=== PATIENT | female | born 1945 | race Caucasian/White ===

== ENCOUNTER 2023-01-13 10:37 | Inpatient (IN) | payer BC, OTHER ==
[~2023-01-13] VITALS: Ht 167.6 cm; Wt 66.7 kg
[2023-01-13 11:03] VITALS: BP 143/72
--- NOTE | 2023-01-13 11:03 | NUR ---
AMBULATED TO BED IN NO DISTRESS.
--- NOTE | 2023-01-13 11:09 | NUR ---
REPORT RECEIVED ASSUMED CARE
--- NOTE | 2023-01-13 11:19 | NUR ---
PER PT REPORT PT HHAD 2 EPISODE OF BLACK STOOL 2 WEEKS AGOO TODAY BRIGHT RED, DENIES CP, SOB, OR DIZZINESS, PT TAKES DAILY ASA
[2023-01-13 11:41] LABS: BASOPHILS % (AUTO) 0.5 % (0.0-2.0); EOSINOPHILS # (AUTO) 0.1 K/uL (0-0.4); EOSINOPHILS % (AUTO) 1.6 % (0.0-4.0); HEMATOCRIT 37.1 % (36-48); HEMOGLOBIN 12.7 g/dL (12.0-16.0); LYMPHOCYTES # (AUTO) 1.5 K/uL (2.5-16.5); LYMPHOCYTES % (AUTO) 27.3 % (20.5-51.1); MEAN CORPUSCULAR HEMOGLOBIN 33 pg (27-31); MEAN CORPUSCULAR HGB CONC 34 g/dL (33-37); MEAN CORPUSCULAR VOLUME 95.8 fL (80-94); MONOCYTES # (AUTO) 0.6 K/uL (0.8-1.0); MONOCYTES % (AUTO) 10.6 % (1.7-9.3); NEUTROPHILS # (AUTO) 3.4 K/uL (1.8-7.7); PLATELET COUNT (AUTO) 285 K/uL (140-450); RED BLOOD CELL COUNT(AUTO) 3.87 MIL/uL (4.20-5.40); RED CELL DISTRIBUTION WIDTH 13.8 % (11.6-13.7); WHITE BLOOD COUNT (AUTO) 5.7 K/uL (4.8-10.8)
--- NOTE | 2023-01-13 11:48 | NUR ---
PT C/O BLOODY STOOL TODAY, 2 PREVIOUS DARK STOOL EPISODES IN THE PAST 2WKS. NAD HX: HTN, DM, PACEMAKER
[2023-01-13 11:55] LABS: APPEARANCE,URINE CLEAR (CLEAR); BILIRUBIN,URINE NEGATIVE (NEGATIVE); BLOOD, URINE NEGATIVE (NEGATIVE); COLOR,URINE YELLOW (YELLOW); LEUKOCYTE ESTERASE ,URINE 1+ (NEGATIVE); NITRITE, URINE NEGATIVE (NEGATIVE); UGLUCOSE NEGATIVE (NEGATIVE)
[2023-01-13 12:02] LABS: ALBUMIN 4.1 g/dL (3.4-5.0); AMYLASE 74 U/L (25-115); ANION GAP 14.8 (8-16); ASPARTATE AMINOTRANSFERASE 17 U/L (15-37); CARBON DIOXIDE 24.2 mmol/L (21-32); CHLORIDE 106 mmol/L (98-107); CREATININE 0.8 mg/dL (0.6-1.3); GLUCOSE 146 mg/dL (74-106); LIPASE 161 U/L (73-393); SODIUM SERUM 141 mmol/L (136-145); TOTAL BILIRUBIN 0.3 mg/dL (0.0-1.0); UREA NITROGEN, BLOOD 13 mg/dL (7-18)
[2023-01-13] MEDS ORDERED: NACL 0.9% 2,000 ML IV ONE (12:55)
[2023-01-13] MEDS ORDERED: PIPERACILLIN/TAZOBACTAM 3.375 GM in DEXTROSE 5% 50 ML IV ONE (13:05)
[2023-01-13] MEDS ORDERED: PIPERACILLIN/TAZOBACTAM 3.375 GM VIAL IV ONE (13:33)
[2023-01-13] MEDS ORDERED: HYDROcodone/APAP 7.5/325 MG 1 TAB PO PRN (15:25)
[2023-01-13] MEDS ORDERED: NACL 0.9% 1,000 ML IV SCH (15:25)
[2023-01-13] MEDS ORDERED: ONDANSETRON 4 MG/2 ML VIAL IVP PRN (15:25)
[2023-01-13] MEDS ORDERED: POTASSIUM CHLORIDE 10 MEQ TABER PO PRN (15:25)
[2023-01-13] MEDS ORDERED: ACETAMINOPHEN 325 MG TAB PO PRN (15:25)
[2023-01-13 17:00] LABS: AMYLASE 73 U/L (25-115); CHOL/HDL RATIO 3.1 (1-4.5); HDL CHOLESTEROL 72 mg/dL (40-60); LDL (CALC) 132 mg/dL (60-100); LIPASE 166 U/L (73-393); MAGNESIUM 1.4 mg/dL (1.8-2.4); PHOSPHORUS 3.3 mg/dL (2.5-4.9); THYROID STIMULATING HORMONE 1.59 uIU/mL (0.34-3.74); TRIGLYCERIDES 92 mg/dL (30-150)
[2023-01-13 18:59] LABS: PROTHROMBIN TIME 10.3 secs (10.8-13.4)
--- NOTE | 2023-01-13 19:35 | NUR ---
Patient resting in bed, A/Ox4, chest rise and fall symmetrical, no c/o pain of s/s of distress, on monitor.
[2023-01-13] MEDS: MAG SULF 2000 MG/WATER PREMIX 50 ML IV PRN (20:39)
[2023-01-13] MEDS: DOCUSATE SODIUM 100 MG GELCAP PO SCH (21:00)
--- NOTE | 2023-01-13 21:00 | NUR ---
Patient resting in bed, A/Ox4, chest rise and fall symmetrical, no c/o pain of s/s of distress, on monitor.
--- NOTE | 2023-01-13 21:12 | NUR ---
Patient will be admitted to care of Dr. Sanchez. Admited to [facility]. Will go to room 110B. Belongings list completed. Report to [facility] Nurse Vicky RN. [facility] Nurse Vicky RN verbalized understanding of report, no further questions.
--- NOTE | 2023-01-13 21:25 | NUR ---
PT WAS ADMITTED TO [facility] DEPARTMENT FROM ER WITH DIAGNOSIS OF SEPSIS AND COLITIS. PT IS AOX4, AMBULATORY, NEPALI SPEAKING, ABLE TO VERBALIZE NEEDS AND ABLE TO FOLLOW COMMANDS. PT IS ON ROOM AIR AND ON REGULAR DIET. PT HAS IV ON RIGHT FOREARM GAUGE 20 RUNNING WITH NS AT 50ML/HR. PT SKIN IS INTACT. PT DENIES PAIN AND NO S/S OF RESPIRATORY DISTRESS NOTED. ALL SAFETY MEASURES IMPLEMENTED. BED IN LOW POSITION AND CALL LIGHT WITHIN REACH.
--- NOTE | 2023-01-13 22:30 | NUR ---
SCHEDULED AND PRESCRIBED MEDICATION WAS GIVEN TO PT PER MD ORDER. ALL SAFETY MEASURES IMPLEMENTED. BED IN LOW POSITION AND CALL LIGHT WITHIN REACH.
[2023-01-14] VITALS: BP 109/55
--- NOTE | 2023-01-14 00:24 | NUR ---
NOTIFIED DR. RESENDIZ REGARDING PT ACCUCHECK. WILL WAIT FOR DOCTOR'S ORDER.
[2023-01-14] MEDS ORDERED: INSULIN LISPRO SLIDING SCALE 100 UNITS/ML VIAL SUBQ PRN (01:05)
--- NOTE | 2023-01-14 02:00 | NUR ---
PT IS ON SLEEP. CHEST RISE AND FALL SYMMETRICALLY NOTED. RESPIRATION IS EVEN AND UNLABORED. ALL SAFETY MEASURES IMPLEMENTED. BED IN LOW POSITION AND CALL LIGHT WITHIN REACH.
--- NOTE | 2023-01-14 04:15 | NUR ---
ASSISTED PT TO BATHROOM AND COLLECTED URINE SPECIMEN. NO COMPLAIN OF PAIN. NO S/S OF RESPIRATORY DISTRESS NOTED. ALL SAFETY MEASURES IMPLEMENTED. BED IN LOW POSITION AND CALL LIGHT WITHIN REACH.
[2023-01-14] MEDS: DEXT 5% / NACL 0.9% 500 ML IV SCH ×3 (06:29→19:04)
[2023-01-14] MEDS: BLOOD GLUCOSE MONITORING 1 DEV DEV FS SCH ×4 (06:31→20:59)
[2023-01-14 07:10] LABS: BASOPHILS % (AUTO) 0.3 % (0.0-2.0); EOSINOPHILS # (AUTO) 0.1 K/uL (0-0.4); EOSINOPHILS % (AUTO) 3.1 % (0.0-4.0); HEMATOCRIT 35.1 % (36-48); HEMOGLOBIN 11.9 g/dL (12.0-16.0); LYMPHOCYTES # (AUTO) 1.5 K/uL (2.5-16.5); LYMPHOCYTES % (AUTO) 38.5 % (20.5-51.1); MEAN CORPUSCULAR HEMOGLOBIN 33 pg (27-31); MEAN CORPUSCULAR HGB CONC 34 g/dL (33-37); MEAN CORPUSCULAR VOLUME 96.2 fL (80-94); MONOCYTES # (AUTO) 0.6 K/uL (0.8-1.0); MONOCYTES % (AUTO) 15.7 % (1.7-9.3); NEUTROPHILS # (AUTO) 1.7 K/uL (1.8-7.7); NEUTROPHILS % (AUTO) 42.4 % (42.2-75.2); PLATELET COUNT (AUTO) 268 K/uL (140-450); RED BLOOD CELL COUNT(AUTO) 3.65 MIL/uL (4.20-5.40); RED CELL DISTRIBUTION WIDTH 13.6 % (11.6-13.7); WHITE BLOOD COUNT (AUTO) 3.9 K/uL (4.8-10.8)
[2023-01-14 07:11] LABS: ANION GAP 9.7 (8-16); CARBON DIOXIDE 28.9 mmol/L (21-32); CHLORIDE 109 mmol/L (98-107); CREATININE 0.6 mg/dL (0.6-1.3); GLUCOSE 91 mg/dL (74-106); POTASSIUM 3.6 mmol/L (3.5-5.1); SODIUM SERUM 144 mmol/L (136-145); UREA NITROGEN, BLOOD 8 mg/dL (7-18)
--- NOTE | 2023-01-14 07:12 | NUR ---
RECEIVED REPORT FROM JAVA DEVELOPER ANALYST NURSE, LIGIA, FOR CONTINUITY OF CARE. PT IN BED SLEEPING AT THIS TIME. RESPIRATIONS ARE EVEN AND UNLABORED ON ROOM AIR. NO SIGNS OF DISTRESS NOTED. PT IS ALERT AND ORIENTED X4, ABLE TO VERBALIZE NEEDS, ABLE TO FOLLOW COMMANDS. PT IS ON REGULAR DIET, TOLERATING WELL. BOWEL SOUNDS PRESENT IN ALL QUADRANTS. LAST BOWEL MOVEMENT WAS 01/13/23. PT CONTINENT OF BOWEL AND BLADDER. SKIN IS WARM, DRY, NON-INTACT; PT HAS 2 SURGICAL SITES WITH DRAINS. NO COMPLAINTS OF PAIN OR DISCOMFORT AT THIS TIME. CALL LIGHT WITHIN REACH. ALL SAFETY MEASURES IN PLACE. Addendum: 01/14/23 at 1018 by Kelly Hendrickson LVN DOCUMENTATION ON WRONG PATIENT.
--- NOTE | 2023-01-14 07:12 | NUR ---
PT IS STABLE. ENDORSED PT TO MORNING SHIFT NURSE FOR CONTINUITY OF CARE.
[2023-01-14 07:15] LABS: MAGNESIUM 1.5 mg/dL (1.8-2.4); PHOSPHORUS 3.3 mg/dL (2.5-4.9)
--- NOTE | 2023-01-14 07:15 | NUR ---
RECEIVED REPORT FROM REFRACTORY FURNACE DESIGNER NURSE, RADHA, FOR CONTINUITY OF CARE. PT IN BED AT THIS TIME, AWAKE. RESPIRATIONS ARE EVEN AND UNLABORED ON ROOM AIR. NO SIGNS OF DISTRESS NOTED. PT IS ALERT AND ORIENTED X4, ABLE TO FOLLOW COMMANDS, ABLE TO MAKE NEEDS KNOWN. PT IS NPO AT THIS TIME, AWAITING GI CONSULT. ABD IS NONTENDER, NONDISTENDED WITH BOWEL SOUNDS PRESENT. LAST BOWEL MOVEMENT WAS THIS MORNING. PT IS CONTINENT OF BOWEL AND BLADDER. PT HAS IV TO RFA 20G. SKIN IS WARM, DRY, AND INTACT. CALL LIGHT WITHIN REACH. ALL SAFETY MEASURES IN PLACE.
[2023-01-14 08:00] VITALS: BP 122/56
[2023-01-14] MEDS ORDERED: PANTOPRAZOLE 40 MG INJ VIAL IVP SCH (09:00)
[2023-01-14] MEDS: PANTOPRAZOLE 40 MG INJ VIAL IVP SCH ×2 (09:00→20:51)
[2023-01-14] MEDS: DOCUSATE SODIUM 100 MG GELCAP PO SCH ×2 (09:00→20:51)
--- NOTE | 2023-01-14 09:19 | NUR ---
PATIENT HAS BEEN SCREENED AND CATEGORIZED MODERATE NUTRITION RISK. PATIENT WILL BE SEEN WITHIN 3-5 DAYS OF ADMISSION. REVIEWED BY LIAT LOFTON RD
--- NOTE | 2023-01-14 09:36 | NUR ---
PT REFUSED MEDICATION DOCUSATE. STATES SHE "DOES NOT NEED HELP USING THE RESTROOM AND DOES NOT NEED STOOL SOFTENERS." EDUCATED PT ON MEDICATION. PT CONTINUES TO REFUSE.
--- NOTE | 2023-01-14 10:13 | NUR ---
MEDICATION PROTONIX IVP ADMINISTERED BY RN.
[2023-01-14 10:49] LABS: BARBITURATE, URINE NEGATIVE ng/ml (NEG <=200); BENZODIAZEPINE, URINE POSITIVE ng/mL (NEG <=200); CANNABINOID, URINE NEGATIVE ng/mL (NEG <=50); COCAINE, URINE NEGATIVE ng/mL (NEG <=300); OPIATE, URINE NEGATIVE ng/mL (NEG <=2000); PHENCYCLIDINE SCREEN,URINE NEGATIVE ng/mL (NEG <=25)
--- NOTE | 2023-01-14 11:54 | NUR ---
PT CALLING NURSE, STATING SHE FEELS LIKE HER BLOOD SUGAR IS LOW. CHECKED BLOOD GLUCOSE. BLOOD GLUCOSE IS 110. PT MADE AWARE. PT STATED "OH OK I WAS JUST SAYING THAT BECAUSE I'M HUNGRY AND NOT ALLOWED TO EAT". EDUCATED PT ON REASON FOR NPO, WELL IVF COMPONENT OF D5 AND HOW THAT IS KEEPING HER GLUCOSE LEVELS STABLE. PT VERBALIZED UNDERSTANDING.
--- NOTE | 2023-01-14 14:16 | NUR ---
PT CALLING. FAMILY AT BEDSIDE. PT ASKING TO GIVE DAUGHTER UPDATE ON PLAN OF CARE. UPDATED PT DAUGHTER. ANSWERED ALL QUESTIONS.
[2023-01-14 16:00] VITALS: BP 102/60
--- NOTE | 2023-01-14 17:20 | NUR ---
DR DELEON AT BEDSIDE FOR CONSULT. NEW ORDERS PLACED. PER DR DELEON, GIVE PT CLEAR LIQUID DIET FOR DINNER, AND THEN NPO AT MIDNIGHT.
[2023-01-14] MEDS ORDERED: LACTULOSE 20 GM/30 ML UDC PO SCH (18:00)
[2023-01-14] MEDS ORDERED: SENNA 8.6 MG TAB PO SCH (18:00)
--- NOTE | 2023-01-14 19:15 | NUR ---
ENDORSED PT TO SPEEDER WORKER NURSERADHA, FOR CONTINUITY OF CARE. PT IS STABLE.
--- NOTE | 2023-01-14 19:16 | NUR ---
RECEIVED REPORT FROM MORNING SHIFT NURSE. PT IS AOX4, WITH RELATIVE BEDSIDE, AMBULATORY, CYMRAES SPEAKING, ABLE TO VERBALIZE NEEDS AND ABLE TO FOLLOW COMMANDS. PT IS ON ROOM AIR AND ON CLEAR LIQUID DIET. PT HAS AN IV ON LEFT WRIST GAUGE 22 RUNNING WITH D5NS AT 80ML/HR. PT SKIN IS INTACT. PT DENIES PAIN AND NO S/S OF RESPIRATORY DISTRESS NOTED. ALL SAFETY MEASURES IMPLEMENTED. BED IN LOW POSITION AND CALL LIGHT WITHIN REACH.
[2023-01-14] MEDS: SUPREP BOWEL PREP KIT 354 ML SOLN.RECON PO SCH (20:52)
--- NOTE | 2023-01-14 20:52 | NUR ---
ALL SCHEDULED AND PRESCRIBED MEDICATION WAS GIVEN TO PT PER MD ORDER. ALL SAFETY MEASURES IMPLEMENTED. BED IN LOW POSITION AND CALL LIGHT WITHIN REACH.
--- NOTE | 2023-01-14 20:59 | NUR ---
PT BLOOD GLUCOSE IS 118. NO INSULIN COVERAGE NEEDED.
--- NOTE | 2023-01-14 22:00 | NUR ---
ASSISTED PT TO BATHROOM. NO COMPLAIN OF PAIN. NO S/S OF RESPIRATORY DISTRESS NOTED. ALL SAFETY MEASURES IMPLEMENTED. BED IN LOW POSITION, BED WHEELS ON LOCK AND CALL LIGHT WITHIN REACH.
[2023-01-15] VITALS: BP 137/61
--- NOTE | 2023-01-15 | NUR ---
REMINDED THE PT THAT SHE'S ON NPO ALREADY. PT VERBALIZE UNDERSTANDING. NO COMPLAIN OF PAIN. NO S/S OF RESPIRATORY DISTRESS NOTED. ALL SAFETY MEASURES IMPLEMENTED. BED IN LOW POSITION, BED WHEELS ON LOCK AND CALL LIGHT WITHIN REACH.
[2023-01-15] MEDS: DEXT 5% / NACL 0.9% 500 ML IV SCH ×3 (01:06→13:35)
--- NOTE | 2023-01-15 02:00 | NUR ---
PT IS ON SLEEP. CHEST RISE AND FALL SYMMETRICALLY NOTED. RESPIRATION IS EVEN AND UNLABORED. ALL SAFETY MEASURES IMPLEMENTED. BED IN LOW POSITION, BED WHEELS ON LOCK AND CALL LIGHT WITHIN REACH.
--- NOTE | 2023-01-15 04:00 | NUR ---
CHECKED THE PT, STILL ON SLEEP. CHEST RISE AND FALL SYMMETRICALLY NOTED. RESPIRATION IS EVEN AND UNLABORED. ALL SAFETY MEASURES IMPLEMENTED. BED IN LOW POSITION, BED WHEELS ON LOCK AND CALL LIGHT WITHIN REACH.
[2023-01-15] MEDS: BLOOD GLUCOSE MONITORING 1 DEV DEV FS SCH ×2 (06:32→12:07)
--- NOTE | 2023-01-15 06:32 | NUR ---
PT GLUCOSE IS 125. NO INSULIN COVERAGE NEEDED.
[2023-01-15 06:48] LABS: MAGNESIUM 1.4 mg/dL (1.8-2.4); PHOSPHORUS 3.6 mg/dL (2.5-4.9)
[2023-01-15 06:50] LABS: ANION GAP 13.7 (8-16); CARBON DIOXIDE 25.9 mmol/L (21-32); CHLORIDE 108 mmol/L (98-107); CREATININE 0.6 mg/dL (0.6-1.3); GLUCOSE 135 mg/dL (74-106); POTASSIUM 3.6 mmol/L (3.5-5.1); SODIUM SERUM 144 mmol/L (136-145); UREA NITROGEN, BLOOD 10 mg/dL (7-18)
[2023-01-15 06:58] LABS: BASOPHILS % (AUTO) 0.4 % (0.0-2.0); EOSINOPHILS # (AUTO) 0.2 K/uL (0-0.4); EOSINOPHILS % (AUTO) 2.9 % (0.0-4.0); HEMATOCRIT 38.3 % (36-48); LYMPHOCYTES % (AUTO) 33.5 % (20.5-51.1); MEAN CORPUSCULAR HEMOGLOBIN 33 pg (27-31); MEAN CORPUSCULAR HGB CONC 34 g/dL (33-37); MEAN CORPUSCULAR VOLUME 95.4 fL (80-94); MONOCYTES # (AUTO) 0.7 K/uL (0.8-1.0); MONOCYTES % (AUTO) 12.7 % (1.7-9.3); NEUTROPHILS % (AUTO) 50.5 % (42.2-75.2); PLATELET COUNT (AUTO) 283 K/uL (140-450); RED BLOOD CELL COUNT(AUTO) 4.01 MIL/uL (4.20-5.40); RED CELL DISTRIBUTION WIDTH 13.6 % (11.6-13.7); WHITE BLOOD COUNT (AUTO) 5.8 K/uL (4.8-10.8)
--- NOTE | 2023-01-15 07:20 | NUR ---
PT IS STABLE. ENDORSED PT TO MORNING SHIFT FOR CONTINUITY OF CARE.
--- NOTE | 2023-01-15 07:21 | NUR ---
RECEIVED PT FROM WHITESMITH NURSE FOR CONTINUITY OF CARE. PT IS AWAKE, AOX4. RESPIRATIONS EVEN AND UNLABORED ON RA. SKIN WARM AND DRY. RESPIRATIONS EVEN AND UNLABORED. IV ON L WRIST 22G INFUSING D5 NS @80CCS. CALL LIGHT WITHIN REACH. ALL SAFETY PRECAUTIONS IN PLACE.
[2023-01-15 08:00] VITALS: BP 131/57
[2023-01-15] MEDS: DOCUSATE SODIUM 100 MG GELCAP PO SCH (08:12)
--- NOTE | 2023-01-15 08:13 | NUR ---
ADMINISTERED SCHEDULED MED. PT REQUESTING TO HOLD OFF ON SUPREP BOWEL PREP. PT STATES SHE HAS HAD 13 BOWEL MOVEMENTS FROM NIGHT TO MORNING AND HER BOWEL MOVEMENTS ARE ALL CLEAR. PT SAYS HAS NOT EATEN IN OVER 3 DAYS DUE TO HER ABDOMINAL PAIN. PER PT WILL CALL NURSE TO LOOK AT BOWEL MOVEMENT, AND IF IT IS NOT CLEAR SHE AGREE TO TAKE ANOTHER DOSE OF SUPREP.
[2023-01-15] MEDS: SUPREP BOWEL PREP KIT 354 ML SOLN.RECON PO SCH (09:00)
[2023-01-15] MEDS: PANTOPRAZOLE 40 MG INJ VIAL IVP SCH (13:34)
[2023-01-15] MEDS: MAG SULF 2000 MG/WATER PREMIX 50 ML IV PRN (13:40)
[2023-01-15] MEDS ORDERED: fentaNYL citrate 0.05 MG/ML VIAL ONE (14:08)
[2023-01-15] MEDS ORDERED: MIDAZOLAM 2 MG/2 ML VIAL ONE (14:08)
[2023-01-15] MEDS ORDERED: fentaNYL citrate 0.05 MG/ML VIAL IVP ONE (15:40)
[2023-01-15] MEDS ORDERED: MIDAZOLAM 2 MG/2 ML VIAL IVP ONE (15:40)
[2023-01-15 16:12] VITALS: BP 131/57
--- NOTE | 2023-01-15 17:10 | NUR ---
DISCUSSED DISCHARGE PACKET WITH PATIENT. PT NAME BAND AND IV REMOVED. BELONGINGS GATHERED AND TAKEN. [facility] FAMILY. PT DC TO HOME. PT IN STABLE CONDITION.
== END 2023-01-15 17:14 | disposition home or self-care (01) | DRG 378 ==
LOC: MED 10:37 → MMU 15:27 → MTU 20:02
PROC: 0DBG8ZZ Excision of Left Large Intestine, Via Natural or Artificial Opening Endoscopic (ICD-10-PCS; principal; 2023-01-15 14:40)
DX: K62.5 Hemorrhage of anus and rectum (principal); E87.20 Acidosis, unspecified; E11.9 Type 2 diabetes mellitus without complications; I10 Essential (primary) hypertension; Z20.822 Contact with and (suspected) exposure to COVID-19; K59.00 Constipation, unspecified; K64.8 Other hemorrhoids; Z90.710 Acquired absence of both cervix and uterus
CPT/HCPCS: 36415; 71045; 80048; 80053; 80305; 81003; 82150; 82948; 83036; 83605; 83690; 83735; 84100; 84439; 84443; 84484; 85025; 85610; 85730; 87081; 87086; 88305; 93005; 96374; 99291; C9113; J2250; J2543; J3010; J3475; J7030; Q0092